=== PATIENT | female | born 1945 | race Hispanic/Latino ===

== ENCOUNTER → 2019-03-14 | Outpatient (CLI) | payer OTHER | END | disposition home or self-care (01) | LOC: SHCH 10:51 | PROVIDERS: ATTEND Internal Medicine Cardiovascular Disease | DX: I73.9 Peripheral vascular disease, unspecified (principal); I87.2 Venous insufficiency (chronic) (peripheral) | CPT/HCPCS: 93970 ==

== ENCOUNTER → 2024-06-23 | Outpatient (CLI) | payer MEDICARE, OTHER ==
--- NOTE | 2024-06-26 08:13 | HMCSR ---
APPROVED REPORT Bilateral Lower Extremity Venous Study for DVT., Venous Competence.Study performed with patient in up right position or in reverse Trendelenburg. Vein Imaging CFV (R): Normal flow, augmentation and compression. No evidence of DVT, Diameter 9.9 mm SFJ (R): Normal flow, augmentation and compression. No evidence of DVT. FEM (R): Normal flow, augmentation and compression. No evidence of DVT. POP (R): Normal flow, augmentation and compression. No evidence of DVT. DFV (R): Normal flow, augmentation and compression. No evidence of DVT. PTV (R): Normal flow, augmentation and compression. No evidence of DVT. Peroneals (R): Normal flow, augmentation and compression. No evidence of DVT. GAS (R): Normal flow, augmentation and compression. No evidence of DVT. CFV (L): Normal flow, augmen tation and compression. No evidence of DVT, Diameter 11.5 mm, 389 ms of DVR. SFJ (L): Normal flow, augmentation and compression. No evidence of DVT. FEM (L): Normal flow, augmentation and compression. No evidence of DVT. POP (L): Normal flow, augmentation and compression. No evidence of DVT. DFV (L): Normal flow, augmentation and compression. No evidence of DVT. PTV (L): Normal flow, augmentation and compression. No evidence of DVT. Peroneals (L): Normal flow, augmentation and compression. No evidence of DVT. GAS (L): Normal flow, augmentation and compression. No evidence of DVT. Technologist Impression The deep veins of the bilateral lower extremities appear patent and compressible without evidence of thrombus. Deep venous reflux demonstrated in the left common femoral vein. There is evidence of significant superficial venous insufficiency in the bilateral greater saphenous veins. RGSV Junction 4.9 mm 0 ms Mid thigh 3.7 mm 367 ms Knee 3.3 mm 833 ms Mid- calf 2.3 mm 333 ms RSSV Prox 1.6 mm 0 ms Mid 1.9 mm 283 ms LGSV Junction 3.2 mm 278 ms Mid thigh 3.9 mm 883 ms Knee 3.6 mm 0 ms Mid-calf 3.5 mm 0 ms LSSV Prox 3.0 mm 0 ms Mid 2.3 mm 0 ms Conclusion Deep venous reflux demonstrated in the left common femoral vein. There is evidence of significant superficial venous insufficiency in the bilateral greater saphenous veins. Consider formal venography with IVC clinically indicated Conclusion Deep venous reflux demonstrated in the left common femoral vein. There is evidence of significant superficial venous insufficiency in the bilateral greater saphenous veins. Consider formal venography with IVC clinically indicated
== END | disposition home or self-care (01) ==
LOC: SHCH 13:44
PROVIDERS: ATTEND Internal Medicine Cardiovascular Disease
DX: I87.2 Venous insufficiency (chronic) (peripheral) (principal); I87.1 Compression of vein
CPT/HCPCS: 93970